=== PATIENT | female | born 1970 | race African-American/Black ===

== ENCOUNTER 2023-03-14 17:11 | Emergency (ER) | payer OTHER, SELFPAY ==
[2023-03-14] VITALS (13 sets, daily range): BP systolic 159–221; BP diastolic 65–100; PULSE 64–87; RESP 15–20; TEMP 36.4–36.7; O2SAT 98–100
--- NOTE | ~2023-03-14 | XR_ITS ---
EXAMINATION: XR chest 1V portable DATE: 03/14/2023 17:41 INDICATION: Chest fluttering. TECHNIQUE: A single frontal view of the chest was obtained. COMPARISON: None. FINDINGS: There is no pneumonia, pleural effusion, or pneumothorax. The heart size is normal. IMPRESSION: 1. No acute cardiopulmonary disease. Reviewed, dictated and finalized at location E.
--- NOTE | ~2023-03-14 | XR_ITS ---
EXAMINATION: XR knee RT 3V DATE: 03/14/2023 17:41 INDICATION: Right knee pain TECHNIQUE: Anteroposterior, oblique and crosstable lateral views of the right knee were obtained COMPARISON: None. FINDINGS: Alignment is normal. No fracture. The moderate size marginal osteophytes in all 3 compartments of the right knee consistent with tricompartmental osteoarthritis. There is no significant joint space narr owing although this can be underestimated on nonweightbearing imaging. No degenerative joint effusion . 5 mm long thin wire-like metallic density projecting over the subcutaneous fat at the anteromedial aspect of the distal right thigh. Soft tissues are otherwise unremarkable. IMPRESSION: 1. Tricompartmental osteoarthritis at the right knee. No acute osseous abnormality or definitive join t effusion. 2. Small thin wire-like metallic foreign body in the subcutaneous fat at the anteromedial distal righ t thigh. Reviewed, dictated and finalized at location A. IMPRESSION: 1. Tricompartmental osteoarthritis at the right knee. No acute osseous abnormal ity or definitive joint effusion. 2. Small thin wire-like metallic foreign body in the subcutaneous fat at the an teromedial distal right thigh.
--- NOTE | ~2023-03-14 | US_ITS ---
EXAMINATION: US venous doppler LE RT DATE: 03/14/2023 18:18 INDICATION: Right calf pain. TECHNIQUE: Grayscale ultrasound images without and with compression and Doppler ultrasound images of the right lower extremity veins were obtained. COMPARISON: None. FINDINGS: The visualized portions of right common femoral vein, profunda (deep) femoral vein, femoral vein, pop liteal vein, peroneal veins, posterior tibial veins, and greater saphenous vein outflow are patent. IMPRESSION: 1. No deep venous thrombosis. Reviewed, dictated and finalized at location E.
--- NOTE | 2023-03-14 17:29 | ED.ARRPALP ---
HPI - Arrhythmia/Palpitations General Chief Complaint: Arrhythmia/Palpitations Stated Complaint: leg pain Time Seen by Provider: 03/14/23 17:20 Source: patient Mode of arrival: ambulatory Limitations: no limitations History of Present Illness HPI narrative: Patient drove herself to the emergency room complaining of intermittent bounding, fast heart beat takes her breath away associated with funny feeling across upper chest, started 3 days ago also complaining of pain at the right calf muscle, and her right knee gave out sometime while walking. Basically feeling weird over the last 3 days. Currently patient is asymptomatic as long as laying down in bed. History of hypertension, diabetes, does not smoke or drink or uses drugs. Does not take aspirin or any anticoagulant medication Related Data Allergies Allergy/AdvReac Type Severity Reaction Status Date / Time codeine Allergy Unknown Verified 03/14/23 17:33 Review of Systems Review of Systems: All systems reviewed & are unremarkable except as noted in HPI and below Exam Narrative: General appearance: Well-developed, well-nourished Skin: Normal color Head: Normocephalic, nontraumatic Eyes: Clear conjunctiva ENT: Oropharynx normal, ears normal, nose normal Neck: Supple, nontender Chest and respiratory: Airway patent, no respiratory distress, no accessory muscle use Heart: Regular rate/rhythm Abdomen: Soft, nontender, no organomegaly, quiet bowel sounds Vascular: Normal peripheral pulses, normal capillary refill. Musculoskeletal: Diffuse tenderness to right calf muscles, no swelling, no bruises, no deformity, no swelling, slight tenderness right knee posteriorly Neurologic: Alert and oriented ?3, [employer] is normal as tested, no gross motor deficit Course Vital Signs Vital signs: Vital Signs Temperature 36.7 C 03/14/23 17:19 Pulse Rate 87 03/14/23 17:19 Respiratory Rate 19 03/14/23 17:19 Blood Pressure 203/75 H 03/14/23 17:19 Pulse Oximetry 100 03/14/23 17:19 Oxygen Delivery Room Air 03/14/23 17:19 Temperature 36.4 C L 03/14/23 19:14 Pulse Rate 75 03/14/23 21:15 Respiratory Rate 15 03/14/23 21:15 Blood Pressure 159/65 H 03/14/23 21:15 Pulse Oximetry 100 03/14/23 21:15 Oxygen Delivery Room Air 03/14/23 17:19 MDM - Arrhythmia/Palpitations MDM Narrative Medical decision making narrative: 52 years old -[place] female presents with palpitation, funny feeling across the chest, right calf muscles of pain over the last 3 days. The differential diagnosis include coronary artery disease, pneumonia, palpitation, anxiety, pneumonia, deep vein thrombosis Work-up today showed normal CBC, normal coags, venous blood gas showed normal pH, chemistry showed blood glucose of 363, alkaline phosphatase of 220. No old records for comparison. EKG showed normal sinus rhythm at 83 bpm, left atrial enlargement, nonspecific T wave abnormality, no previous EKG available for comparison. Chest x-ray showed no acute abnormalities, venous Doppler right lower extremity showed no blood clot, right knee x-ray showed osteoarthritis. Patient probably noncompliance with her medication, blood glucose is elevated, blood pressure is elevated on arrival to the ED, 203/75, In the ED patient received aspirin, Lopressor 5 mg IV x3, Lopressor 37.5 p.o. once, Nitropaste 2 inches, Dilaudid 1 mg IV, Zofran 4 mg IV, and normal saline 1 L IV for hyperglycemia. Current blood pressure is 192/82. Patient blood pressure is not stable and keeps going up in spite of of medicine. Cardiac score is 3 Differential Diagnosis Differential diagnosis: Likely palpitations, anxiety and other (Deep vein thrombos
--- NOTE | 2023-03-14 17:30 | ECG_ITS ---
Measurements Intervals [place] Rate: 83 P: 58 LA: 179 QRS: 31 QRSD: 85 T: 27 QT: 301 QTc: 355 Interpretive Statements SINUS RHYTHM POSSIBLE LEFT ATRIAL ENLARGEMENT POOR R-WAVE PROGRESSION NONSPECIFIC T-WAVE ABNORMALITY ABNORMAL ECG NO PREVIOUS ECG AVAILABLE FOR COMPARISON Electronically Signed On 03-15-2023 8:28:04 CDT by Preston Lucas M.D.
[2023-03-14 17:46] LABS: Basophils Percent Auto 0.3 % (0.2-1.2); Eosinophils Absolute Auto 0.1 K/mm3 (0-0.3); Eosinophils Percent Auto 1.2 % (0-4.4); Hematocrit 37.6 % (37.0-47.0); Hemoglobin 12.6 g/dL (12.0-15.0); Immature Granulocyte Absolute 0.02 K/mm3 (0.00-0.031); Immature Granulocyte Percent A 0.3 % (0-0.5); Lymphocytes Absolute Auto 1.38 K/mm3 (0.9-3.2); Lymphocytes Percent Auto 17.9 % (18.3-44.2); Mean Corpuscular HGB Conc 33.5 g/dl (32-36); Mean Corpuscular Hemoglobin 27.3 pg (26-34); Mean Corpuscular Volume 81.6 fl (80-100); Mean Platelet Volume 10.3 fl (7.4-10.4); Monocytes Absolute Auto 0.6 K/mm3 (0.1-0.6); Monocytes Percent Auto 7.3 % (2.6-8.5); Neutrophils Absolute Auto 5.7 K/mm3 (1.3-6.7); Platelet Count Result 280 k/mm3 (150-375); Red Blood Count 4.61 M/mm3 (4.2-5.4); Red Cell Distribution Width 13.8 % (11.5-14.5); White Blood Count 7.7 K/mm3 (4.5-10.0)
[2023-03-14] MEDS: METOPROLOL TARTRATE INJ 5 MG/5 ML VIAL IV PUSH ×3 (17:50→18:03)
[2023-03-14] MEDS: NITROGLYCERIN OINTMENT 1 INCH DOSE TRANSDERM (17:50)
[2023-03-14 18:03] LABS: Prothrombin Time 13.7 Seconds (11.1-14.7)
[2023-03-14 18:04] LABS: Partial Thromboplastin Time 45.9 SECONDS (22.3-36.8)
[2023-03-14 18:14] LABS: Alanine Aminotransferase 23 U/L (6-35); Alkaline Phosphatase 220 U/L (38-126); Anion Gap 5 mmol/L (8-16); Aspartate Amino Transferase 20 U/L (14-36); Bilirubin,Total 0.5 mg/dL (0.2-1.3); Blood Urea Nitrogen 13 mg/dL (7-17); Calcium 8.9 mg/dL (8.4-10.2); Carbon Dioxide 29 mmol/L (22-30); Chloride 101 mmol/L (98-107); Estimated CRCL calculation 89 ml/min; Estimated Glomerular Filt Rate > 60; Glucose 363 mg/dL (65-110); Lipase 90 U/L (23-300); Potassium 3.7 mmol/L (3.4-5.0); Sodium 135 mmol/L (137-145)
[2023-03-14 18:25] LABS: Troponin I < 0.012 ng/mL (0.000-0.034)
[2023-03-14] MEDS: SODIUM CHLORIDE 0.9% IV 1,000 ML 999 ML IV CONT (18:59)
[2023-03-14] MEDS: ONDANSETRON INJ 4 MG/2 ML VIAL IV PUSH (19:10)
[2023-03-14] MEDS: HYDROmorphone HCL INJ (*CRX) 1 MG/ML SYR 0.5 MG IV PUSH (19:11)
[2023-03-14] MEDS: NITROGLYCERIN OINTMENT 1 INCH DOSE 2 INCH TRANSDERM (19:12)
[2023-03-14 19:32] LABS: Device ROOM AIR; Fractional Inspired Oxygen 21 %; HCO3 VBG 28.8 mEq/l (24.0-30.0); PCO2 VBG 48.8 mmHg (42.0-48.0); PO2 VBG < 27.0 mmHg (35.0-45.0); pH VBG 7.389 (7.300-7.400)
[2023-03-14 21:19] LABS: Troponin I < 0.012 ng/mL (0.000-0.034)
== END 2023-03-14 21:40 | disposition home or self-care (01) ==
PROVIDERS: Emergency Provider Emergency Medicine; PCP Internal Medicine
DX: R00.2 Palpitations (principal); I10 Essential (primary) hypertension; E11.65 Type 2 diabetes mellitus with hyperglycemia; M17.11 Unilateral primary osteoarthritis, right knee; M79.661 Pain in right lower leg
CPT/HCPCS: 36415; 71045; 73562; 80053; 82803; 83690; 84484; 85025; 85610; 85730; 93005; 93971; 96361; 96374; 96375; 99284; A9270; J1170; J2405; J7030